=== PATIENT | female | born 1960 | race Caucasian/White ===

== ENCOUNTER 2017-07-28 14:56 | Emergency (ER) | payer OTHER ==
[~2017-07-28 14:56] MED LIST: LIBRAX PO; PR25 PO; PRAVACHOL40 MG PO; PRILOSEC40 MG PO; PRIN20 PO; SUCR PO; TRIAM/HCTZ PO; X25 PO
[2017-07-28 15:44] LABS: BASOPHILS 0.2 %; BASOPHILS ABSOLUTE 0.03 10/3/uL (0.0-0.16); EOSINOPHILS 0.6 %; EOSINOPHILS ABSOLUTE 0.08 10/3/uL (0.0-0.53); HEMOGLOBIN 14.2 g/dL (12.0-16.0); IMMATURE GRANULOCYTES 0.8 %; IMMATURE GRANULOCYTES ABSOLUTE 0.11 10/3/uL (0.0-0.11); LYMPHOCYTES 17.4 %; LYMPHOCYTES ABSOLUTE 2.46 10/3/uL (0.67-4.30); MEAN CORPUS HGB CONC 34.6 g/dL (32.0-36.0); MEAN PLATELET VOLUME 9.5 fL (9.2-13.0); MONOCYTES 10.8 %; MONOCYTES ABSOLUTE 1.53 10/3/uL (0.21-1.20); NEUTROPHILS 70.2 %; NEUTROPHILS ABSOLUTE 9.93 10/3/uL (2.02-8.40); PLATELET COUNT 230 10/3/uL (150-400); RBC DISTRIBUTION WIDTH 12.9 % (12.0-16.0); RED CELL COUNT 3.94 10/6/uL (4.0-5.6)
[2017-07-28 15:45] LABS: MANUAL DIFF NO %; MEAN CORPUSCULAR VOLUME 104.1 fL (80-100); WHITE BLOOD CELLS 14.1 10/3/uL (4.5-10.5)
[2017-07-28 16:00] LABS: ASCORBIC ACID (UR NOT ORDER) NEG (NEG); BILIRUBIN, URINE NEGATIVE (NEG); ER URINALYSIS TAT 0 Hrs 11 Mins; KETONE, URINE 20 MG/DL (NEG); LEUKOCYTE ESTERASE(NOT OR NEG (NEG); NITRITE (URINE) NEG (NEG); WBC (NOT ORDERED) (RFLEX) 1 (0-5)
[2017-07-28 16:00] LABS: A/G RATIO 0.9 (0.7-1.9); ALBUMIN 3.7 G/DL (3.5-5.0); BUN (BLOOD UREA NITROGEN) 10 MG/DL (6-23); CALCIUM, SERUM 9.3 MG/DL (8.5-10.4); CHLORIDE, SERUM 98 MMOL/L (96-112); CREATININE 0.63 MG/DL (0.55-1.02); GFR AFRICAN AMERICAN 117 ML/MIN (>=60); GFR NON AFRICAN AMERICAN 101 ML/MIN (>=60); GLOBULIN 4.1 G/DL (2.5-4.1); GLUCOSE, SERUM 141 MG/DL (60-99); POTASSIUM, SERUM 4.2 MMOL/L (3.5-5.3); SGOT(AST) 200 U/L (5-40); SGPT(ALT) 82 U/L (5-65); SODIUM, SERUM 134 MMOL/L (135-148); TOTAL PROTEIN 7.8 G/DL (6.0-8.5)
[2017-07-28 16:01] LABS: ALKALINE PHOSPHATASE 109 U/L (45-117); CO2 (CARBON DIOXIDE) 26 MMOL/L (24-34); TOTAL BILIRUBIN 1.1 MG/DL (0-1.2)
== END 2017-07-28 18:35 | disposition home or self-care (01) ==
LOC: ER 14:56
PROVIDERS: Hospitalist
DX: K29.80 Duodenitis without bleeding (principal); Z79.899 Other long term (current) drug therapy
CPT/HCPCS: 74176; 80053; 81001; 83690; 84703; 85025; 93005; 96374; 99284; J2405